=== PATIENT | male | born 1945 | race Caucasian/White ===

== ENCOUNTER 2021-07-13 16:59 | Emergency (ER) | payer OTHER ==
[2021-07-13 17:15] VITALS: BP 170/107; PULSE 90; TEMP 98.3; BMI 24.7
[2021-07-13] MEDS ORDERED: LIDO 2%/EPI 1:200000 PRESRVFRE (20 ML SDVIAL) ONE (17:23)
== END 2021-07-13 17:53 | disposition home or self-care (01) ==
LOC: FER 16:59
PROC: 0CQ7XZZ Repair Tongue, External Approach (ICD-10-PCS; principal; 2021-07-13)
DX: S01.512A Laceration without foreign body of oral cavity, initial encounter (principal); Y93.89 Activity, other specified
CPT/HCPCS: 99282-25

== ENCOUNTER 2021-07-18 09:15 | Emergency (ER) | payer OTHER ==
[2021-07-18 09:23] VITALS: BMI 24.7
[2021-07-18] MEDS ORDERED: LIDOCAINE HCL 4% PRESERVE-FREE 5 ML AMP TP ONE (10:18)
[2021-07-18 16:47] VITALS: BP 158/67; PULSE 73; TEMP 98
== END 2021-07-18 14:05 | disposition home or self-care (01) ==
LOC: FER 09:15
PROC: 0CQ7XZZ Repair Tongue, External Approach (ICD-10-PCS; principal; 2021-07-18)
DX: S01.512A Laceration without foreign body of oral cavity, initial encounter (principal); Y99.9 Unspecified external cause status
CPT/HCPCS: 99283-25

== ENCOUNTER 2021-07-19 22:26 | Emergency (ER) | payer OTHER ==
[2021-07-19 23:16] VITALS: BP 144/87; PULSE 74; TEMP 97.8; BMI 20.6
== END 2021-07-20 00:47 | disposition home or self-care (01) ==
LOC: FER 22:26
DX: S00.512A Abrasion of oral cavity, initial encounter (principal)
CPT/HCPCS: 99283-25

== ENCOUNTER 2022-02-10 09:46 | Emergency (ER) | payer OTHER ==
[2022-02-10 10:17] VITALS: BMI 22.2
[2022-02-10] MEDS ORDERED: SODIUM CHLORIDE 0.9% 500 ML INFUS.BAG IV ONE (10:42)
[2022-02-10 11:47] VITALS: BP 115/63; PULSE 63; TEMP 97.7
[2022-02-10 11:48] LABS: BASO % 0.3 % (0-2.0); EOS % 1.5 % (0-4.5); HEMATOCRIT 42.8 % (35.4-49); HEMOGLOBIN 14.3 GM/dL (11.7-16.9); LYMPH % 21.5 % (8-40); MCHC 33.5 g/dl (32.0-35.9); MEAN CELL VOLUME 95.8 fl (80-96); MEAN PLT VOLUME 8.9 fl (7.5-11.1); MONO % 12.7 % (3.8-10.2); PLATELET COUNT 102 10^3/uL (134-434); RBC 4.47 M/mm3 (4.00-5.60); RDW 14.4 % (11.9-15.9); WHITE BLOOD COUNT 4.1 K/mm3 (4.0-10.0)
[2022-02-10 11:53] LABS: ALBUMIN 3.6 g/dl (3.4-5.0); BILIRUBIN,TOTAL 0.7 mg/dl (0.2-1); CALCIUM 9.4 mg/dl (8.5-10); CREATININE 0.7 mg/dl (0.55-1.3); MAGNESIUM 1.5 mg/dL (1.8-2.4); PHOSPHOROUS 2.9 mg/dl (2.5-4.9); TOT PROT 6.2 g/dl (6.4-8.2)
[2022-02-10] MEDS ORDERED: MAGNESIUM 1GM/D5W - 1 GM/100 ML IVPB IVPB ONE (12:46)
[2022-02-11 16:10] LABS: SARS-CoV-2 NAA Detected (Not Detected)
== END 2022-02-10 14:10 | disposition home or self-care (01) ==
LOC: FER 09:46
PROC: 3E033GC Introduction of Other Therapeutic Substance into Peripheral Vein, Percutaneous Approach (ICD-10-PCS; principal; 2022-02-10)
DX: U07.1 COVID-19 (principal)
CPT/HCPCS: 36415; 71045-TC-FY; 80053; 83735; 84100; 84484; 85025; 93005; 96374; 99285-25; C9803-CS; U0003; U0005